=== PATIENT | male | born 1965 | race Caucasian/White ===

== ENCOUNTER 2020-05-09 04:47 | Inpatient (IN) | payer MEDICAID ==
[~2020-05-09] VITALS: Ht 167.6 cm; Wt 76.7 kg
[2020-05-09 08:30] LABS: BASOPHILS % 0.3 % (0.0-2.0); HEMATOCRIT. 50.7 % (42.0-52.0); HEMOGLOBIN. 17.4 g/dL (14.0-18.0); LYMPHOCYTES % 17.7 % (20.0-50.0); MEAN CORPUSCULAR HEMOGLOBIN 29.7 pg (28.0-32.0); MEAN CORPUSCULAR VOLUME 86.4 fL (80.0-94.0); MEAN PLATELET VOLUME 9.6 fl (7.4-10.4); MONOCYTES % 7.1 % (2.0-8.0); NEUTROPHILS % 74.9 % (40.0-76.0); PLATELET 294 x1000/uL (130-400); RED BLOOD CELL COUNT 5.87 mill/uL (4.7-6.1); RED CELL DISTRIBUTION WIDTH 13.3 % (11.6-14.6)
[2020-05-09 08:32] LABS: CHLORIDE 96 mEq/L (98-107)
[2020-05-09 08:39] LABS: D-DIMER 1.16 mg/L FEU (<0.50); PROTHROMBIN TIME 10.8 sec (9.6-11.0)
[2020-05-09 08:41] LABS: CREATINE KINASE 444 IU/L (39-308)
[2020-05-09 10:02] LABS: BG BASE EXCESS -7.7 mmol/L (-2.0-2.0); BG CARBOXYHEMOGLOBIN 1.1 % (0.5-1.5); BG DEOXYHEMOGLOBIN 8.7 % (0.0-5.0); BG HCO3 ACT 14.5 mmol/L (22.0-26.0); BG METHEMOGLOBIN 0.2 % (0.0-1.5); BG OXYGEN SATURATION 91.2 % (92.0-98.5); BG PCO2 23.5 mmHg (35.0-45.0); BG PH 7.409 (7.350-7.450); BG PO2 60.3 mmHg (75.0-100.0); BG SAMPLE SITE RIGHT BRACHIAL; BG TOTAL HEMOGLOBIN 16.3 g/dL (12.0-18.0); BG VENT MODE NASAL CANNULA
[2020-05-09 14:32] LABS: CLARITY URINE CLEAR (CLEAR); COLOR URINE YELLOW (YELLOW); KETONES URINE 4+ (NEGATIVE); LEUKOCYTE ESTERASE URINE NEGATIVE (NEGATIVE); NITRITE URINE NEGATIVE (NEGATIVE); OCCULT BLOOD URINE NEGATIVE (NEGATIVE); PROTEIN URINE 2+ (NEGATIVE); SPECIFIC GRAVITY URINE 1.041 (1.005-1.030)
[2020-05-09] MEDS ORDERED: ONDANSETRON HCL 4MG/2ML INJ IV PRN (21:30)
[2020-05-09] MEDS ORDERED: MAGNESIUM/ALUMINUM HYDROXIDE/SIMETHICONE 30ML UDC PO PRN (21:30)
[2020-05-09] MEDS ORDERED: CLONIDINE 0.1MG TABLET PO PRN (21:30)
[2020-05-09] MEDS ORDERED: ACETAMINOPHEN 325MG TABLET PO PRN (21:30)
[2020-05-09] MEDS ORDERED: DEXTROSE 50% WATER 50ML SYRINGE IV PRN ×2 (21:45)
[2020-05-10 06:48] LABS: BASOPHILS % 0.2 % (0.0-2.0); HEMATOCRIT. 46.9 % (42.0-52.0); HEMOGLOBIN. 16.3 g/dL (14.0-18.0); LYMPHOCYTES % 19.4 % (20.0-50.0); MEAN CORPUSCULAR HEMOGLOBIN 30.1 pg (28.0-32.0); MEAN CORPUSCULAR VOLUME 86.3 fL (80.0-94.0); MEAN PLATELET VOLUME 9.3 fl (7.4-10.4); MONOCYTES % 7.9 % (2.0-8.0); NEUTROPHILS % 72.5 % (40.0-76.0); PLATELET 336 x1000/uL (130-400); RED BLOOD CELL COUNT 5.44 mill/uL (4.7-6.1); RED CELL DISTRIBUTION WIDTH 13.2 % (11.6-14.6)
[2020-05-10 06:55] LABS: CHLORIDE 97 mEq/L (98-107)
[2020-05-10 07:01] LABS: PHOSPHORUS 3.4 mg/dL (2.5-4.9)
[2020-05-10 07:02] LABS: LDL CHOLESTEROL 79 mg/dL (5-100)
[2020-05-10 07:03] LABS: HDL CHOLESTEROL 36 mg/dL (40-59)
[2020-05-10] MEDS: INSULIN LISPRO 100 UNITS/ML SUBCUT SCH ×4 (08:20→21:00)
[2020-05-10] MEDS: BLOOD SUGAR DIAGNOSTIC STRIP TEST SCH ×4 (09:00→21:00)
[2020-05-10] MEDS: FAMOTIDINE 20MG/2ML VIAL IV SCH (09:00)
[2020-05-10] MEDS ORDERED: PANTOPRAZOLE SODIUM 40 MG/VIAL IV SCH (09:00)
[2020-05-10] MEDS: DEXAMETHASONE 4MG TABLET PO SCH (09:00)
[2020-05-10 11:04] LABS: BG BASE EXCESS -9.6 mmol/L (-2.0-2.0); BG CARBOXYHEMOGLOBIN 0.7 % (0.5-1.5); BG DEOXYHEMOGLOBIN 5.5 % (0.0-5.0); BG FRACTION INSPIRED OXYGEN 44; BG HCO3 ACT 12.9 mmol/L (22.0-26.0); BG METHEMOGLOBIN 0.1 % (0.0-1.5); BG OXYGEN SATURATION 94.5 % (92.0-98.5); BG OXYHEMOGLOBIN 93.7 % (94.0-97.0); BG PCO2 22.2 mmHg (35.0-45.0); BG PH 7.382 (7.350-7.450); BG PO2 72.7 mmHg (75.0-100.0); BG SAMPLE SITE RIGHT RADIAL; BG TOTAL HEMOGLOBIN 16.7 g/dL (12.0-18.0); BG VENT MODE NASAL CANNULA
[2020-05-10] MEDS: ASCORBIC ACID 500 MG TABLET PO SCH (17:00)
[2020-05-10] MEDS: ENOXAPARIN 40MG/0.4ML SYR SUBCUT SCH (22:30)
[2020-05-11] VITALS (8 sets, daily range): BP systolic 92–141; BP diastolic 54–96
[2020-05-11] MEDS: FAMOTIDINE 20MG/2ML VIAL IV SCH ×3 (00:12→21:58)
[2020-05-11] MEDS: ASCORBIC ACID 500 MG TABLET PO SCH ×4 (00:13→17:47)
[2020-05-11] MEDS: ENOXAPARIN 40MG/0.4ML SYR SUBCUT SCH ×2 (00:13→22:00)
[2020-05-11] MEDS: DEXAMETHASONE 4MG TABLET PO SCH ×2 (00:14→08:27)
[2020-05-11 07:48] LABS: CHLORIDE 100 mEq/L (98-107)
[2020-05-11 08:02] LABS: BASOPHILS % 0.4 % (0.0-2.0); HEMATOCRIT. 46.1 % (42.0-52.0); HEMOGLOBIN. 15.7 g/dL (14.0-18.0); LYMPHOCYTES % 8.6 % (20.0-50.0); MEAN CORPUSCULAR HEMOGLOBIN 29.6 pg (28.0-32.0); MEAN CORPUSCULAR VOLUME 87.2 fL (80.0-94.0); MEAN PLATELET VOLUME 9.9 fl (7.4-10.4); MONOCYTES % 2.4 % (2.0-8.0); NEUTROPHILS % 88.6 % (40.0-76.0); PLATELET 429 x1000/uL (130-400); RED BLOOD CELL COUNT 5.29 mill/uL (4.7-6.1); RED CELL DISTRIBUTION WIDTH 13.2 % (11.6-14.6)
[2020-05-11] MEDS: BLOOD SUGAR DIAGNOSTIC STRIP TEST SCH ×4 (08:16→21:58)
[2020-05-11] MEDS: INSULIN LISPRO 100 UNITS/ML SUBCUT SCH ×4 (08:29→22:00)
[2020-05-11] MEDS: INSULIN GLARGINE UD 100 UNITS/ML SYR SUBCUT SCH (22:00)
[2020-05-12] VITALS: BP 133/86
[2020-05-12 04:00] VITALS: BP 138/92
[2020-05-12 06:21] LABS: CHLORIDE 102 mEq/L (98-107)
[2020-05-12] MEDS: BLOOD SUGAR DIAGNOSTIC STRIP TEST SCH ×4 (06:31→20:51)
[2020-05-12 06:52] LABS: BASOPHILS % 0.5 % (0.0-2.0); HEMATOCRIT. 49.9 % (42.0-52.0); HEMOGLOBIN. 17.1 g/dL (14.0-18.0); LYMPHOCYTES % 9.9 % (20.0-50.0); MEAN CORPUSCULAR HEMOGLOBIN 29.9 pg (28.0-32.0); MEAN CORPUSCULAR VOLUME 87.1 fL (80.0-94.0); MEAN PLATELET VOLUME 9.9 fl (7.4-10.4); MONOCYTES % 6.5 % (2.0-8.0); NEUTROPHILS % 83.1 % (40.0-76.0); PLATELET 531 x1000/uL (130-400); RED BLOOD CELL COUNT 5.72 mill/uL (4.7-6.1)
[2020-05-12] MEDS: INSULIN LISPRO 100 UNITS/ML SUBCUT SCH ×4 (06:53→21:18)
[2020-05-12 08:00] VITALS: BP 116/5
[2020-05-12] MEDS: DEXAMETHASONE 4MG TABLET PO SCH (09:59)
[2020-05-12] MEDS: FAMOTIDINE 20MG/2ML VIAL IV SCH ×2 (10:00→21:18)
[2020-05-12] MEDS: ASCORBIC ACID 500 MG TABLET PO SCH ×3 (10:00→17:40)
[2020-05-12 12:00] VITALS: BP 127/87
[2020-05-12 16:00] VITALS: BP 128/86
[2020-05-12 20:00] VITALS: BP 122/86
[2020-05-12] MEDS: ENOXAPARIN 40MG/0.4ML SYR SUBCUT SCH (22:47)
[2020-05-12] MEDS: INSULIN GLARGINE UD 100 UNITS/ML SYR SUBCUT SCH (22:47)
[2020-05-13] VITALS: BP 121/87
[2020-05-13 04:00] VITALS: BP 118/85
[2020-05-13 07:24] LABS: BASOPHILS % 0.8 % (0.0-2.0); HEMATOCRIT. 49.3 % (42.0-52.0); HEMOGLOBIN. 16.9 g/dL (14.0-18.0); LYMPHOCYTES % 15.1 % (20.0-50.0); MEAN CORPUSCULAR HEMOGLOBIN 29.6 pg (28.0-32.0); MEAN CORPUSCULAR VOLUME 86.6 fL (80.0-94.0); MEAN PLATELET VOLUME 9.8 fl (7.4-10.4); MONOCYTES % 7.7 % (2.0-8.0); NEUTROPHILS % 76.4 % (40.0-76.0); PLATELET 575 x1000/uL (130-400); RED BLOOD CELL COUNT 5.69 mill/uL (4.7-6.1); RED CELL DISTRIBUTION WIDTH 12.9 % (11.6-14.6)
[2020-05-13] MEDS: BLOOD SUGAR DIAGNOSTIC STRIP TEST SCH ×3 (07:36→21:46)
[2020-05-13 08:00] VITALS: BP 124/80
[2020-05-13 08:29] LABS: CHLORIDE 102 mEq/L (98-107)
[2020-05-13] MEDS: DEXAMETHASONE 4MG TABLET PO SCH (08:45)
[2020-05-13] MEDS: INSULIN LISPRO 100 UNITS/ML SUBCUT SCH ×4 (08:50→21:46)
[2020-05-13] MEDS: FAMOTIDINE 20MG/2ML VIAL IV SCH ×2 (08:50→21:45)
[2020-05-13 12:00] VITALS: BP 118/86
[2020-05-13] MEDS: ASCORBIC ACID 500 MG TABLET PO SCH ×3 (13:28→18:18)
[2020-05-13 16:00] VITALS: BP 114/79
[2020-05-13 20:00] VITALS: BP 121/83
[2020-05-13] MEDS: ENOXAPARIN 40MG/0.4ML SYR SUBCUT SCH (21:45)
[2020-05-13] MEDS: INSULIN GLARGINE UD 100 UNITS/ML SYR SUBCUT SCH (21:47)
[2020-05-14] VITALS: BP 110/80
[2020-05-14 04:00] VITALS: BP 115/60
[2020-05-14] MEDS: BLOOD SUGAR DIAGNOSTIC STRIP TEST SCH ×4 (06:40→21:00)
[2020-05-14 07:39] LABS: BASOPHILS % 0.8 % (0.0-2.0); EOSINOPHILS % 0.2 % (0.0-5.0); HEMATOCRIT. 49.4 % (42.0-52.0); HEMOGLOBIN. 16.9 g/dL (14.0-18.0); LYMPHOCYTES % 14.6 % (20.0-50.0); MEAN CORPUSCULAR HEMOGLOBIN 29.4 pg (28.0-32.0); MEAN CORPUSCULAR VOLUME 86.1 fL (80.0-94.0); MEAN PLATELET VOLUME 9.9 fl (7.4-10.4); MONOCYTES % 9.9 % (2.0-8.0); NEUTROPHILS % 74.5 % (40.0-76.0); PLATELET 651 x1000/uL (130-400); RED BLOOD CELL COUNT 5.74 mill/uL (4.7-6.1); RED CELL DISTRIBUTION WIDTH 12.8 % (11.6-14.6)
[2020-05-14 07:47] LABS: CHLORIDE 103 mEq/L (98-107)
[2020-05-14 08:00] VITALS: BP 114/77
[2020-05-14] MEDS: INSULIN LISPRO 100 UNITS/ML SUBCUT SCH ×4 (08:10→22:45)
[2020-05-14] MEDS: DEXAMETHASONE 4MG TABLET PO SCH (09:40)
[2020-05-14] MEDS: FAMOTIDINE 20MG/2ML VIAL IV SCH ×2 (09:41→22:51)
[2020-05-14 12:00] VITALS: BP 111/80
[2020-05-14] MEDS: ASCORBIC ACID 500 MG TABLET PO SCH ×3 (13:09→18:33)
[2020-05-14 16:00] VITALS: BP 155/102
[2020-05-14 20:00] VITALS: BP 112/95
[2020-05-14] MEDS: INSULIN GLARGINE UD 100 UNITS/ML SYR SUBCUT SCH (22:44)
[2020-05-14] MEDS: ENOXAPARIN 40MG/0.4ML SYR SUBCUT SCH (22:50)
[2020-05-15] VITALS: BP 118/84
[2020-05-15] MEDS: BLOOD SUGAR DIAGNOSTIC STRIP TEST SCH ×4 (07:03→21:00)
[2020-05-15 08:00] VITALS: BP 112/81
[2020-05-15] MEDS ORDERED: INSULIN GLARGINE UD 100 UNITS/ML SYR SUBCUT SCH ×2 (10:00→22:00)
[2020-05-15] MEDS: INSULIN LISPRO 100 UNITS/ML SUBCUT SCH ×4 (10:27→22:39)
[2020-05-15] MEDS: DEXAMETHASONE 4MG TABLET PO SCH (10:28)
[2020-05-15] MEDS: FAMOTIDINE 20MG/2ML VIAL IV SCH (10:28)
[2020-05-15] MEDS: ASCORBIC ACID 500 MG TABLET PO SCH ×3 (10:28→18:16)
[2020-05-15 12:00] VITALS: BP 113/77
[2020-05-15 16:00] VITALS: BP 112/60
[2020-05-15 20:00] VITALS: BP 104/76
[2020-05-15] MEDS: ENOXAPARIN 40MG/0.4ML SYR SUBCUT SCH (22:39)
[2020-05-16] VITALS: BP 115/80
[2020-05-16 04:00] VITALS: BP 12/85
[2020-05-16] MEDS: BLOOD SUGAR DIAGNOSTIC STRIP TEST SCH ×4 (07:53→21:00)
[2020-05-16 08:00] VITALS: BP 114/94
[2020-05-16] MEDS: ASCORBIC ACID 500 MG TABLET PO SCH ×3 (08:21→17:47)
[2020-05-16] MEDS: DEXAMETHASONE 4MG TABLET PO SCH (08:22)
[2020-05-16] MEDS: FAMOTIDINE 20MG/2ML VIAL IV SCH ×2 (08:26→22:47)
[2020-05-16] MEDS: INSULIN LISPRO 100 UNITS/ML SUBCUT SCH ×4 (08:29→22:46)
[2020-05-16] MEDS ORDERED: INSULIN GLARGINE UD 100 UNITS/ML SYR SUBCUT SCH (10:00)
[2020-05-16 12:00] VITALS: BP 122/79
[2020-05-16 16:00] VITALS: BP 124/75
[2020-05-16 20:00] VITALS: BP 104/73
[2020-05-16] MEDS: INSULIN GLARGINE UD 100 UNITS/ML SYR SUBCUT SCH (22:46)
[2020-05-16] MEDS: ENOXAPARIN 40MG/0.4ML SYR SUBCUT SCH (22:47)
[2020-05-17] VITALS: BP 108/81
[2020-05-17 04:00] VITALS: BP 103/75
[2020-05-17 08:00] VITALS: BP 109/75
[2020-05-17] MEDS: INSULIN LISPRO 100 UNITS/ML SUBCUT SCH ×4 (08:04→23:41)
[2020-05-17] MEDS: BLOOD SUGAR DIAGNOSTIC STRIP TEST SCH ×4 (08:04→21:00)
[2020-05-17] MEDS: INSULIN GLARGINE UD 100 UNITS/ML SYR SUBCUT SCH ×2 (10:00→23:41)
[2020-05-17] MEDS: ASCORBIC ACID 500 MG TABLET PO SCH ×3 (11:40→18:47)
[2020-05-17] MEDS: FAMOTIDINE 20MG/2ML VIAL IV SCH ×2 (11:40→23:45)
[2020-05-17] MEDS: DEXAMETHASONE 4MG TABLET PO SCH (11:41)
[2020-05-17 12:00] VITALS: BP 98/63
[2020-05-17 16:00] VITALS: BP 95/65
[2020-05-17] MEDS ORDERED: SODIUM CHLORIDE 0.9% 500 ML IV ONE (18:00)
[2020-05-17 20:00] VITALS: BP 104/71
[2020-05-17] MEDS: ENOXAPARIN 40MG/0.4ML SYR SUBCUT SCH (23:37)
[2020-05-18] VITALS: BP 115/80
[2020-05-18 04:00] VITALS: BP 108/73
[2020-05-18 07:30] LABS: HEMATOCRIT. 42.6 % (42.0-52.0); HEMOGLOBIN. 15.1 g/dL (14.0-18.0); MEAN CORPUSCULAR HEMOGLOBIN 30.3 pg (28.0-32.0); MEAN CORPUSCULAR VOLUME 85.6 fL (80.0-94.0); MEAN PLATELET VOLUME 9.3 fl (7.4-10.4); PLATELET 760 x1000/uL (130-400); RED BLOOD CELL COUNT 4.98 mill/uL (4.7-6.1); RED CELL DISTRIBUTION WIDTH 12.9 % (11.6-14.6)
[2020-05-18 07:44] LABS: CHLORIDE 100 mEq/L (98-107)
[2020-05-18 08:00] VITALS: BP 115/75
[2020-05-18] MEDS: INSULIN LISPRO 100 UNITS/ML SUBCUT SCH ×4 (08:10→20:42)
[2020-05-18] MEDS: BLOOD SUGAR DIAGNOSTIC STRIP TEST SCH ×4 (08:26→20:32)
[2020-05-18] MEDS: ASCORBIC ACID 500 MG TABLET PO SCH ×3 (10:07→17:41)
[2020-05-18] MEDS: DEXAMETHASONE 4MG TABLET PO SCH (10:07)
[2020-05-18] MEDS: FAMOTIDINE 20MG/2ML VIAL IV SCH ×2 (10:08→20:40)
[2020-05-18] MEDS: INSULIN GLARGINE UD 100 UNITS/ML SYR SUBCUT SCH ×2 (10:09→23:33)
[2020-05-18 12:00] VITALS: BP 104/73
[2020-05-18 16:00] VITALS: BP 112/74
[2020-05-18 17:00] LABS: PLATELET ESTIMATE INCREASED
[2020-05-18 20:00] VITALS: BP 108/76
[2020-05-18] MEDS: ENOXAPARIN 40MG/0.4ML SYR SUBCUT SCH (23:35)
[2020-05-19] VITALS: BP 100/69
[2020-05-19 04:00] VITALS: BP 112/67
[2020-05-19] MEDS: BLOOD SUGAR DIAGNOSTIC STRIP TEST SCH ×3 (07:29→16:49)
[2020-05-19] MEDS: INSULIN LISPRO 100 UNITS/ML SUBCUT SCH ×3 (07:30→18:25)
[2020-05-19 08:00] VITALS: BP 111/65
[2020-05-19] MEDS: FAMOTIDINE 20MG/2ML VIAL IV SCH (08:21)
[2020-05-19] MEDS: DEXAMETHASONE 4MG TABLET PO SCH (08:22)
[2020-05-19] MEDS: ASCORBIC ACID 500 MG TABLET PO SCH ×3 (08:22→18:24)
[2020-05-19] MEDS: INSULIN GLARGINE UD 100 UNITS/ML SYR SUBCUT SCH (10:12)
[2020-05-19 12:00] VITALS: BP 107/68
[2020-05-19] MEDS ORDERED: METF500T20 MT (12:16)
[2020-05-19] MEDS ORDERED: DEXA4TAB69 PO (12:16)
[2020-05-19 14:29] VITALS: BP 110/65
[2020-05-19 16:00] VITALS: BP 103/73
== END 2020-05-19 19:57 | disposition home or self-care (01) | DRG 720 ==
LOC: ER 04:47 → EDBEDREQTM 10:02 → EDBEDREQSVC 10:02 → EDBEDREQ 10:02 → 7WST 10:37 → EDBEDREQ 10:39 → EDBEDREQTM 10:39 → ENRESERV 05-10 21:11
PROVIDERS: ADMIT Internal Medicine; ATTEND Internal Medicine
DX: A41.89 Other specified sepsis (principal); U07.1 COVID-19; J96.01 Acute respiratory failure with hypoxia; E87.1 Hypo-osmolality and hyponatremia; E87.2 Acidosis; J12.82 Pneumonia due to coronavirus disease 2019; E87.5 Hyperkalemia; R74.01 Elevation of levels of liver transaminase levels; Z78.9 Other specified health status; Z88.0 Allergy status to penicillin
CPT/HCPCS: 36415; 36600; 71045; 80048; 80053; 80061; 80076; 81003; 82375; 82550; 82728; 82805; 82962; 83036; 83605; 83615; 83735; 84100; 84145; 84443; 84484; 85025; 85379; 85384; 86140; 87804; 93005; 93970; 96372; 96374; 99291; C1893; C9803; J1650; J1815; J3490; J7070; J8540; U0003